=== PATIENT | female | born 1970 | race Caucasian/White ===

== ENCOUNTER 2019-04-09 13:32 | Inpatient (IN) | payer MEDICARE, OTHER ==
[~2019-04-09] VITALS: Ht 165.1 cm; Wt 65.3 kg
[2019-04-09] MEDS ORDERED: FEE PK DOSING 1 MIN EA MC ONE (13:35)
--- NOTE | 2019-04-09 14:00 | NUR ---
PT BIB [facility] AND [employer] WITH A C/O AGGITATION. PT WAS FOUND WALKING ON THE FREEWAY ACTING [place]. PT IS IN CUSTODY AND IS CURRENTLY IN BUE HANDCUFFS. PT WAS PLACED IN BLE NYLON RESTRAINTS SHE WAS INTERFERING WITH TX AND PULLING OFF ALL MONITOR LEADS.
[2019-04-09 14:41] LABS: BASOPHILS # (AUTO) 0.1 /CMM (0.0-0.2); BASOPHILS % (AUTO) 0.8 % (0.0-2.0); EOSINOPHILS % (AUTO) 0.7 % (0.0-6.0); HEMATOCRIT 41 % (33-45); HEMOGLOBIN 14.1 g/dL (11.5-14.8); LYMPHOCYTES # (AUTO) 1.6 /CMM (0.8-4.8); LYMPHOCYTES % (AUTO) 15.5 % (20.0-44.0); MEAN CORPUSCULAR HGB CONC 34 g/dl (31.0-36.0); MEAN CORPUSCULAR VOLUME 89 fL (82-100); MONOCYTES # (AUTO) 0.9 /CMM (0.1-1.30); MONOCYTES % (AUTO) 8.8 % (2.0-12.0); NEUTROPHILS # (AUTO) 7.6 /CMM (1.8-8.9); NEUTROPHILS % (AUTO) 74.2 % (43.0-81.0); PLATELET COUNT (AUTO) 358 /CMM (150-450); RED BLOOD CELL COUNT(AUTO) 4.66 MIL/uL (4.0-5.2); WHITE BLOOD COUNT (AUTO) 10.3 K/uL (4.3-11.0)
--- NOTE | 2019-04-09 14:55 | NUR ---
URINE SAMPLE WAS SENT TO LAB.
[2019-04-09 14:56] LABS: CALCIUM, SERUM 8.8 mg/dL (8.5-10.1); CARBON DIOXIDE 30 mmol/L (21-32); CHLORIDE 103 mmol/L (98-107); CREATININE 0.8 mg/dL (0.6-1.3); GLUCOSE 84 mg/dL (74-106); POTASSIUM 3.4 mmol/L (3.5-5.1); SODIUM SERUM 143 mmol/L (136-145); UREA NITROGEN, BLOOD 8 mg/dL (7-18)
[2019-04-09] MEDS ORDERED: HALOPERIDOL LACTATE INJ 5 MG/ML VIAL ONE (14:57)
[2019-04-09] MEDS ORDERED: LORAZEPAM INJ 2 MG/ML VIAL ONE (14:57)
[2019-04-09] MEDS ORDERED: diphenhydrAMINE HCL 50 MG/ML VIAL ONE (14:57)
[2019-04-09] MEDS ORDERED: diphenhydrAMINE HCL 50 MG/ML VIAL IM ONE (15:00)
[2019-04-09] MEDS ORDERED: HALOPERIDOL LACTATE INJ 5 MG/ML VIAL IM ONE (15:00)
[2019-04-09] MEDS ORDERED: LORAZEPAM INJ 2 MG/ML VIAL IM ONE (15:00)
[2019-04-09 15:02] LABS: ACETAMINOPHEN 0 ug/ml (10-30); ALANINE AMINOTRANSFERASE 148 U/L (12-78); ALBUMIN 3.2 g/dL (3.4-5.0); ALCOHOL, BLOOD < 3 mg/dL (0-0); ALKALINE PHOSPHATASE 63 U/L (46-116); ASPARTATE AMINOTRANSFERASE 230 U/L (15-37); BILIRUBIN,DIRECT 0.2 mg/dL (0.0-0.2); BILIRUBIN,TOTAL 0.8 mg/dL (0.2-1.0); SALICYLATE 1.6 mg/dL (2.8-20.0); TOTAL PROTEIN, SERUM 7.1 g/dL (6.4-8.2)
[2019-04-09 15:03] LABS: APPEARANCE,URINE Clear (CLEAR); BILIRUBIN,URINE Negative (NEGATIVE); BLOOD, URINE Negative Ery/uL (NEGATIVE); COLOR,URINE Yellow (YELLOW); KETONES,URINE 15 (NEGATIVE); LEUKOCYTE ESTERASE ,URINE Negative (NEGATIVE); NITRITE, URINE Positive (NEGATIVE); PROTEIN,URINE Negative (NEGATIVE); UGLUCOSE Negative (NEGATIVE); UROBILINOGEN,URINE 0.2 EU/dL (0.2)
--- NOTE | 2019-04-09 15:05 | NUR ---
URINE SAMPLE OBTAINED VIA IN AND OUT CATH. APPROX 200 ML YELLOW URINE OUTPUT NOTED.
[2019-04-09 15:08] LABS: BACTERIA,URINE Many /HPF (None Seen); RBC,URINE 0-2 /HPF (0-2); SQUAMOUS EPITHELIAL CELL,UR Few /HPF (None Seen); WBC,URINE 0-2 /HPF (0-3)
--- NOTE | 2019-04-09 15:42 | NUR ---
CXR IN PROGRESS AT THE BEDSIDE.
--- NOTE | 2019-04-09 15:42 | NUR ---
[employer] HANDCUFFS WERE REMOVED AND BUE RESTRAINTS APPLIED PER MD ORDER.
--- NOTE | 2019-04-09 15:42 | NUR ---
NO CHAN[facility] [employer] LEFT. PT IS NO LONGER IN CUSTODY.
--- NOTE | 2019-04-09 15:42 | NUR ---
CXR IN PROGRESS AT THE BEDSIDE.
--- NOTE | 2019-04-09 16:10 | NUR ---
pt is in [place]
--- NOTE | 2019-04-09 16:24 | NUR ---
PT SEEN BY DR HAYES.
--- NOTE | 2019-04-09 16:24 | NUR ---
PT RETURNED FROM [place].
[2019-04-09] MEDS ORDERED: VANCOMYCIN 1 GM in IV D5W 250 ML IV ONE (16:30)
--- NOTE | 2019-04-09 17:30 | NUR ---
PT REC'D MEDICATION ORDERED.
[2019-04-09] MEDS ORDERED: HYDROCODONE/APAP 5/325MG 1 EACH TABLET PO PRN (18:00)
[2019-04-09] MEDS ORDERED: ONDANSETRON HCL/PF 4 MG/2 ML VIAL IVP PRN (18:00)
[2019-04-09] MEDS ORDERED: MAG HYDROX/AL HYDROX/SIMETH 30 ML UDC PO PRN (18:00)
[2019-04-09] MEDS ORDERED: ZOLPIDEM TARTRATE 5 MG TABLET PO PRN (18:00)
[2019-04-09] MEDS ORDERED: Z GUARD REMEDY 2 OZ OINT TP PRN (18:00)
[2019-04-09] MEDS ORDERED: ACETAMINOPHEN 325 MG TABLET PO PRN (18:00)
[2019-04-09] MEDS ORDERED: MAGNESIUM HYDROXIDE 30 ML UDC PO PRN (18:00)
--- NOTE | 2019-04-09 18:55 | NUR ---
US TECH IS AT THE BEDSIDE.
--- NOTE | 2019-04-09 20:56 | NUR ---
REPORT GIVEN TO VERENICE ROBLES
[2019-04-09 21:55] VITALS: BP 120/72
--- NOTE | 2019-04-09 21:57 | NUR ---
PT WAS TRANSPORTED TO [facility]IA [facility] PER PROTOCOL.
--- NOTE | 2019-04-09 22:00 | NUR ---
MEDICAL AND SCIENTIFIC ILLUSTRATOR NOTE RECEIVED PATIENT A/O X1. PATIENT UNABLE TO STATE NAME JUST SEEMS DROUSY. PATIENT RECEIVED WITH NASAL CANNULA WITH 2L NO SIGNS OF ANY SOB. PATIENT HAS RAC #18 PATENT AND FLUSHING WELL. ON THE MONITOR SHOWING SINUS RHYTHM IN THE 70'S. ALL SAFETY PRECAUTIONS APPLIED. WILL CONTINUE TO MONITOR
[2019-04-09] MEDS: IV D5/0.45 NACL 1,000 ML IV PRN (22:29)
[2019-04-10] VITALS: BP 125/76
[2019-04-10] MEDS: LORAZEPAM INJ 2 MG/ML VIAL IV SCH ×7 (00:13→21:00)
[2019-04-10] MEDS: ENOXAPARIN SODIUM 40 MG/0.4 ML DISP.SYRIN SQ SCH ×2 (00:15→21:25)
--- NOTE | 2019-04-10 01:00 | NUR ---
RANCH HAND LIVESTOCK NOTE ATIVAN AT 0100 NOT ADMINISTERED. PATIENT IS ASLEEP NO SIGN OF ANXIETY.
[2019-04-10 04:00] VITALS: BP 127/67
[2019-04-10] MEDS: IV D5/0.45 NACL 1,000 ML IV PRN ×2 (06:51→19:59)
--- NOTE | 2019-04-10 07:27 | NUR ---
FELT HOOKER CLOSING NOTE PATIENT IN BED WITH NO SIGN OF ANY DISTRESS. ALL SAFETY PRECAUTIONS APPLIED. ENDORSED PATIENT TO MORNING SHIFT NURSE FOR YANELY.
[2019-04-10 07:50] LABS: BASOPHILS % (AUTO) 0.2 % (0.0-2.0); EOSINOPHILS % (AUTO) 1.3 % (0.0-6.0); HEMATOCRIT 40 % (33-45); HEMOGLOBIN 13.6 g/dL (11.5-14.8); LYMPHOCYTES # (AUTO) 1.1 /CMM (0.8-4.8); LYMPHOCYTES % (AUTO) 13.5 % (20.0-44.0); MEAN CORPUSCULAR HGB CONC 34 g/dl (31.0-36.0); MEAN CORPUSCULAR VOLUME 89 fL (82-100); MONOCYTES # (AUTO) 0.6 /CMM (0.1-1.30); MONOCYTES % (AUTO) 7.3 % (2.0-12.0); NEUTROPHILS # (AUTO) 6.5 /CMM (1.8-8.9); NEUTROPHILS % (AUTO) 77.7 % (43.0-81.0); PLATELET COUNT (AUTO) 323 /CMM (150-450); RED BLOOD CELL COUNT(AUTO) 4.47 MIL/uL (4.0-5.2); WHITE BLOOD COUNT (AUTO) 8.3 K/uL (4.3-11.0)
[2019-04-10 08:00] VITALS: BP 124/70
[2019-04-10 08:04] LABS: ALBUMIN 2.6 g/dL (3.4-5.0); BILIRUBIN,DIRECT 0.2 mg/dL (0.0-0.2); BILIRUBIN,TOTAL 0.7 mg/dL (0.2-1.0); CALCIUM, SERUM 8.1 mg/dL (8.5-10.1); CREATININE 0.6 mg/dL (0.6-1.3); MAGNESIUM 1.7 mg/dL (1.8-2.4); PHOSPHORUS 3.6 mg/dL (2.5-4.9); TOTAL PROTEIN, SERUM 6.2 g/dL (6.4-8.2)
[2019-04-10 08:11] LABS: POTASSIUM 2.7 mmol/L (3.5-5.1)
[2019-04-10 08:14] LABS: THYROID STIMULATING HORMONE 0.557 uIU/mL (0.358-3.74)
[2019-04-10] MEDS: VANCOMYCIN 1 GM in IV D5W 250ml IV SCH ×2 (08:24→21:00)
[2019-04-10] MEDS: PANTOPRAZOLE 40 MG VIAL IV SCH (08:25)
[2019-04-10] MEDS: ASPIRIN 300 MG/SUPP.RECT RC SCH (09:00)
[2019-04-10] MEDS: POTASSIUM CL. PREMIX PERIPHER. 50 ML IV SCH ×6 (10:30→18:16)
[2019-04-10 16:00] VITALS: BP 102/66
--- NOTE | 2019-04-10 19:19 | NUR ---
MS RN Closing Patient asleep at this time, ate 100% of dinner. No agitation noted this shift. Patient able to verbalize name and location. Did not respond to further questions, fell asleep. Ambulated to bathroom this shift. R FA 22G IV intact. Verified with gernishi that facesheet was received for psych eval. Replaced K x6 bags, endorsed x2 mags of mag to NOC RN. Bed alarm on.
--- NOTE | 2019-04-10 19:40 | NUR ---
MS RN NOTE: PATIENT RESTING IN BED, NO ACUTE DISTRESS NOTED. BREATHING EVEN AND UNLABORED, NO SOB NOTE. IV TO RFA IN PLACE, INFUSING D5 1/2NS AT 125ML/HR. BED LOCKED AND IN LOWEST POSITION, CALL LIGHT IN REACH WILL CONTINUE TO MONITOR.
[2019-04-10] MEDS: Magnesium 1GM/D5W 100ML PREMIX 100 ML IV SCH ×2 (19:59→22:50)
[2019-04-10 20:00] VITALS: BP 105/44
--- NOTE | 2019-04-10 21:40 | NUR ---
MS RN NOTE: PATIENT TOO SEDATED, ATIVAN NOT GIVEN AT THIS TIME. PATIENT STILL RESPONSIVE AND VITAL SIGNS STABLE. WILL CONTINUE TO MONITOR.
[2019-04-11] MEDS: LORAZEPAM INJ 2 MG/ML VIAL IV SCH ×6 (01:00→21:06)
--- NOTE | 2019-04-11 06:30 | NUR ---
MS RN NOTE: PATIENT RESTING IN BED, NO ACUTE DISTRESS NOTED. BREATHING EVEN AND UNLABORED, NO SOB NOTE. IV TO RFA IN PLACE, INFUSING D5 1/2NS AT 125ML/HR. BED LOCKED AND IN LOWEST POSITION, CALL LIGHT IN REACH. WILL ENDORSE TO DAY NURSE TO CONTINUE WITH PLAN OF CARE.
--- NOTE | 2019-04-11 07:10 | NUR ---
MS RN OPENING NOTES ALERT AND ORIENTED. NO SOB. DENIES ANY C/O PAIN NOR DISCOMFORT AT THIS TIME. RT AC G #20 INTACT AND PATENT INFUSING D5 1/2 NS @ 125ML/HR. BED IN LOWEST POSITION., LOCKED. BED ALARM ON. BED SIDERAILS UP X2. CALL LIGHT WITHIN REACH.
[2019-04-11 07:24] LABS: BASOPHILS % (AUTO) 0.7 % (0.0-2.0); EOSINOPHILS % (AUTO) 2.1 % (0.0-6.0); HEMATOCRIT 38 % (33-45); HEMOGLOBIN 12.8 g/dL (11.5-14.8); LYMPHOCYTES # (AUTO) 1.1 /CMM (0.8-4.8); LYMPHOCYTES % (AUTO) 16.9 % (20.0-44.0); MEAN CORPUSCULAR HGB CONC 34 g/dl (31.0-36.0); MEAN CORPUSCULAR VOLUME 90 fL (82-100); MONOCYTES # (AUTO) 0.6 /CMM (0.1-1.30); MONOCYTES % (AUTO) 8.3 % (2.0-12.0); NEUTROPHILS # (AUTO) 4.9 /CMM (1.8-8.9); PLATELET COUNT (AUTO) 286 /CMM (150-450); RED BLOOD CELL COUNT(AUTO) 4.22 MIL/uL (4.0-5.2); WHITE BLOOD COUNT (AUTO) 6.8 K/uL (4.3-11.0)
[2019-04-11 07:46] LABS: ALBUMIN 2.4 g/dL (3.4-5.0); BILIRUBIN,DIRECT 0.1 mg/dL (0.0-0.2); BILIRUBIN,TOTAL 0.4 mg/dL (0.2-1.0); CALCIUM, SERUM 8.1 mg/dL (8.5-10.1); CREATININE 0.7 mg/dL (0.6-1.3); MAGNESIUM 1.7 mg/dL (1.8-2.4); PHOSPHORUS 2.7 mg/dL (2.5-4.9); POTASSIUM 3.8 mmol/L (3.5-5.1)
[2019-04-11 08:00] VITALS: BP 105/60
[2019-04-11] MEDS: VANCOMYCIN 1 GM in IV D5W 250ml IV SCH (09:05)
[2019-04-11] MEDS: PANTOPRAZOLE 40 MG VIAL IV SCH (09:23)
[2019-04-11] MEDS: ASPIRIN 300 MG/SUPP.RECT RC SCH (09:23)
[2019-04-11 10:00] VITALS: BP 112/68
[2019-04-11] MEDS: Magnesium 1GM/D5W 100ML PREMIX 100 ML IV SCH ×2 (10:36→12:19)
[2019-04-11] MEDS: IV D5/0.45 NACL 1,000 ML IV PRN ×2 (10:42→22:13)
--- NOTE | 2019-04-11 16:02 | NUR ---
Social service consult requested by Dr. Ramon for homelessness. Upon chart review and MD notes, pt. is a homeless 48-year-old female brought in by ambulance and accompanied by police for evaluation of agitation. The patient was reportedly walking [place] traffic on the highway and became agitated upon police arrival. She was also noted to have erythema extending from her bilateral medial groin area to posterior thighs, which she reports she has had for two weeks. HEEL PAINTER met with the pt. bedside. Pt is alert and oriented x 3. Pt. appears disheveled and unkempt. Pt. is a poor historian. Pt states she has been homeless for a long time but wouldn't specify how long. Pt. states she receives SSDI in the amount of $940 monthly. Pt. has a psychiatric diagnosis of ADHD and Bipolar. Pt. is not med compliant. Pt. currently denies suicidal and homicidal ideations and visual/auditory hallucinations at this time. Pt. has been accepted to a SNF and is willing to go there. sales communications manager to follow up regarding transfer to SNF when medically cleared.
[2019-04-11] MEDS: risperiDONE 0.25 MG TABLET PO SCH ×2 (16:09→18:19)
[2019-04-11] MEDS ORDERED: busPIRone 5 MG TABLET PO SCH (17:00)
--- NOTE | 2019-04-11 19:18 | NUR ---
MS RN CLOSING NOTES PATIENT ASLEEP IN BED, RESTING COMFORTABLY. AROUSABLE TO VERBAL AND TACTILE STIMULI. NO S/S OF RESPIRATORY DISTRESS. DENIES ANY C/O PAIN NOR DISCOMFORT AT THIS TIME. RT AC G #20 INFARCT AND PATENT INFUSING D5 1/2 NS @ 125ML/HR. BED IN LOWEST POSITION., LOCKED. BED ALARM ON. BED SIDERAILS UP X2. CALL LIGHT WITHIN REACH. IN NO APPARENT DISTRESS.
--- NOTE | 2019-04-11 19:30 | NUR ---
MS RN OPENING NOTES RECEIVED PATIENT FROM MORNING SHIFT ALERT AND ORIENTED X 2. VERBALLY RESPONSIVE AND ABLE TO FOLLOW DIRECTIONS. BREATHING REGULAR AND UNLABORED ON ROOM AIR. REMAINED CALM IN BED. RIGHT AC G20 INTACT AND PATENT, INFUSING WELL WITH NO BLEEDING OR S/S OF INFECTION NOTED. NO S/S OF PAIN/DISCOMFORT NOTED OF THE TIME. BED LOW AND LOCKED ON SEMI FOWLERS POSITION. CALL LIGHT IN REACH. WILL CONTINUE TO MONITOR.
--- NOTE | 2019-04-11 19:40 | NUR ---
MS RN NOTES MORNING NURSE RELAYED URINE CULTURE RESULT TO , RECEIVED ORDERS TO DC VANCOMYCIN AND START KEFLEX 500MG BID NOTED AND CARRIED OUT.
[2019-04-11 20:00] VITALS: BP 111/53
[2019-04-11] MEDS ORDERED: CEPHALEXIN MONOHYDRATE 250 MG CAPSULE PO SCH (20:00)
[2019-04-11] MEDS: ENOXAPARIN SODIUM 40 MG/0.4 ML DISP.SYRIN SQ SCH (21:24)
[2019-04-11 22:00] VITALS: BP 112/64
[2019-04-11] MEDS ORDERED: MIRTAZAPINE 15 MG TABLET PO SCH (22:00)
[2019-04-11] MEDS ORDERED: TRAZODONE 50 MG TABLET PO SCH (22:00)
[2019-04-12] MEDS: LORAZEPAM INJ 2 MG/ML VIAL IV SCH ×2 (00:56→04:36)
[2019-04-12] MEDS: IV D5/0.45 NACL 1,000 ML IV PRN (06:37)
--- NOTE | 2019-04-12 06:45 | NUR ---
MS RN CLOSING NOTES PATIENT IN BED ALERT AND ORIENTED X 2. VERBALLY RESPONSIVE AND ABLE TO FOLLOW DIRECTIONS. BREATHING REGULAR AND UNLABORED ON ROOM AIR. NO NOTED EPISODE OF AGITATION WITHIN THE SHIFT, NO VERBALIZED SUICIDAL/HOMICIDAL IDEATION OF THE TIME. RIGHT AC G20 INTACT AND INFUSING WELL. NO S/S OF PAIN/DISCOMFORT SEEN THE WHOLE SHIFT. BED LOW AND LOCKED ON SEMI FOWLERS POSITION. CALL LIGHT IN REACH. WILL ENDORSE TO MORNING SHIFT FOR YANELY.
--- NOTE | 2019-04-12 07:30 | NUR ---
RN MS NOTE PT IN BED, ASLEEP, EASY TO AROUSE, ALERT AND ORIENTED, NO COMPLAINT AT THIS TIME, RESPIRATIONS NORMAL, ASKING FOR BREAKFAST, BREAKFAST TRAY PROVIDED TO PT, NEEDS ATTENDED.
[2019-04-12 08:00] VITALS: BP 132/81
[2019-04-12 08:30] LABS: BASOPHILS # (AUTO) 0.1 /CMM (0.0-0.2); BASOPHILS % (AUTO) 0.9 % (0.0-2.0); EOSINOPHILS % (AUTO) 2.6 % (0.0-6.0); HEMATOCRIT 38 % (33-45); HEMOGLOBIN 12.6 g/dL (11.5-14.8); LYMPHOCYTES # (AUTO) 1.3 /CMM (0.8-4.8); LYMPHOCYTES % (AUTO) 19.7 % (20.0-44.0); MEAN CORPUSCULAR HGB CONC 33 g/dl (31.0-36.0); MEAN CORPUSCULAR VOLUME 92 fL (82-100); MONOCYTES # (AUTO) 0.4 /CMM (0.1-1.30); MONOCYTES % (AUTO) 6.6 % (2.0-12.0); NEUTROPHILS # (AUTO) 4.6 /CMM (1.8-8.9); NEUTROPHILS % (AUTO) 70.2 % (43.0-81.0); PLATELET COUNT (AUTO) 285 /CMM (150-450); RED BLOOD CELL COUNT(AUTO) 4.19 MIL/uL (4.0-5.2); WHITE BLOOD COUNT (AUTO) 6.5 K/uL (4.3-11.0)
[2019-04-12 08:45] LABS: CALCIUM, SERUM 8.2 mg/dL (8.5-10.1); CREATININE 0.7 mg/dL (0.6-1.3); MAGNESIUM 1.7 mg/dL (1.8-2.4); PHOSPHORUS 2.7 mg/dL (2.5-4.9); POTASSIUM 3.6 mmol/L (3.5-5.1)
--- NOTE | 2019-04-12 09:00 | NUR ---
RN MS NOTES PT IN BED, AWAKE, ALERT AND ORIENTED, NO COMPLAINT OF PAIN OR ANY DISCOMFORT, RESPIRATIONS NORMAL, ABLE TO AMBULATE INSIDE THE ROOM WITH STEADY GAIT, PT STATED SHE WANTS TO GO HOME, ASKED IF SHE HAS ANYWHERE TO GO, PT SAID YES BUT REFUSED TO PROVIDE FURTHER DETAILS, JUST WANTED TO GO HOME, REMINDED PT THAT SHE HAS TO BE SEEN BY THE HOSPITALIST, STILL STATED THAT SHE WANTS TO LEAVE, PT REFUSED ALL HER PO MEDS, PULLED HER IV OUT, NO BLEEDING NOTED, DISCUSSED RISKS OF LEAVING AMA WITH PT, STILL INSISTED ON LEAVING, ASKING FOR A PAIR OF PANTS, PT SIGNED AMA FORM, PROVIDED PT WITH A PAIR OF PANTS, REMINDED PT TO RETURN TO [facility] IN CASE OF EMERGENCY, PT SIGNED AMA FOR, ASSISTED BY MEDICAL GENETICS DIRECTOR TO [facility] MD KATHERYN AND SOFTWARE RELEASE MANAGER INFORMED.
== END 2019-04-12 08:55 | disposition left against medical advice (07) | DRG 602 ==
LOC: ER 13:34 → TELE1 22:10 → MEDSG1 04-10 09:42
PROVIDERS: ADMIT Student in an Organized Health Care Education/Training Program; ATTEND Student in an Organized Health Care Education/Training Program
DX: L03.115 Cellulitis of right lower limb (principal); I21.A1 Myocardial infarction type 2; G92 Toxic encephalopathy; E44.1 Mild protein-calorie malnutrition; N39.0 Urinary tract infection, site not specified; L03.116 Cellulitis of left lower limb; Z59.0 Homelessness; F15.10 Other stimulant abuse, uncomplicated; E87.6 Hypokalemia; Z68.24 Body mass index [BMI] 24.0-24.9, adult; F39 Unspecified mood [affective] disorder; R74.0 Nonspecific elevation of levels of transaminase and lactic acid dehydrogenase [LDH]; E83.42 Hypomagnesemia; B96.20 Unspecified Escherichia coli [E. coli] as the cause of diseases classified elsewhere
CPT/HCPCS: 36415; 70450-TC; 71045-TC; 76705-TC; 80048-TC; 80053-TC; 80061-TC; 80076-TC; 80202-TC; 80305; 81000-TC; 83605-TC; 83735-TC; 83880; 84100-TC; 84443-TC; 84484-TC; 84702-TC; 85025-TC; 85730-TC; 87040-TC; 87081-TC; 87086-TC; 87186-TC; 93307-TC; A6253; A6403; C9113; G0378; G0480; J1200; J1630; J1650; J2060; J3370; J3475; J3480; J3490; J7060